=== PATIENT | female | born 1970 | race Caucasian/White ===

== ENCOUNTER 2023-10-03 18:13 | Emergency (ER) | payer SELFPAY ==
[~2023-10-03] VITALS: Ht 154.9 cm; Wt 79.4 kg
[2023-10-03] MEDS ORDERED: PRED20TA PO (20:18)
[2023-10-03] MEDS ORDERED: AZIT250T PO (20:18)
[2023-10-03] MEDS ORDERED: KETOROLAC TROMETHAMINE 30 MG INJ ONE (20:26)
[2023-10-03] MEDS ORDERED: KETO10TA2 PO (20:27)
[2023-10-03 20:29] VITALS: BP 120/69; O2SAT 97
[2023-10-03] MEDS: KETOROLAC TROMETHAMINE 30 MG INJ IM ONE (20:29)
== END 2023-10-03 20:30 | disposition home or self-care (01) ==
LOC: ER 18:18
DX: J02.9 Acute pharyngitis, unspecified (principal); Z20.822 Contact with and (suspected) exposure to COVID-19; Z88.2 Allergy status to sulfonamides
CPT/HCPCS: 99284; 71045; 87426; 87804 ×2; 86403; 87070; 96372; J1885; A4606; A4663

== ENCOUNTER 2024-04-19 10:19 | Emergency (ER) | payer MEDICAID ==
[~2024-04-19] VITALS: Ht 154.9 cm; Wt 83.9 kg
[~2024-04-19 10:19] MED LIST: AZIT250T PO; KETO10TA2 PO; PRED20TA PO
[2024-04-19 10:40] LABS: *BILIRUBIN,URIN 1+ (NEGATIVE); *BLOOD, URINE NEGATIVE (NEGATIVE); *CLARITY,URINE CLEAR (CLEAR); *COLOR,URINE YELLOW (YELLOW); *KETONES,URINE TRACE (NEGATIVE); *PROTEIN,URINE NEGATIVE (NEGATIVE); *UROBILINOGEN,URINE 0.2 E.U./dl (NORMAL); LEUKOCYTE ESTERASE ,URINE NEGATIVE (NEGATIVE); NITRITE, URINE NEGATIVE (NEGATIVE); UGLUCOSE NEGATIVE (NEGATIVE)
[2024-04-19] MEDS ORDERED: KETOROLAC TROMETHAMINE 30 MG INJ ONE (10:47)
[2024-04-19] MEDS: KETOROLAC TROMETHAMINE 30 MG INJ IM ONE (10:53)
[2024-04-19 10:58] LABS: *URINE HCG, QUAL NEGATIVE (NEGATIVE)
[2024-04-19 11:15] LABS: RBC,URINE 0-3 /HPF (0-3)
[2024-04-19] MEDS ORDERED: diphenhydrAMINE 50 MG/1 ML VIAL ONE (11:32)
[2024-04-19] MEDS ORDERED: predniSONE 50 MG TABLET ONE (11:32)
[2024-04-19] MEDS ORDERED: PHENAZOPYRIDINE HCL 100 MG TABLET ONE (11:33)
[2024-04-19] MEDS ORDERED: DOXYCYCLINE HYCLATE 100 MG TABLET ONE (11:34)
[2024-04-19] MEDS: DOXYCYCLINE HYCLATE 100 MG TABLET PO ONE (11:42)
[2024-04-19] MEDS: PHENAZOPYRIDINE HCL 100 MG TABLET PO ONE (11:42)
[2024-04-19] MEDS: diphenhydrAMINE 50 MG/1 ML VIAL IM ONE (11:42)
[2024-04-19] MEDS: predniSONE 50 MG TABLET PO ONE (11:42)
[2024-04-19] MEDS ORDERED: PHEN-705 PO (11:43)
[2024-04-19] MEDS ORDERED: ALBU8.5H8 INH (11:43)
[2024-04-19] MEDS ORDERED: PRED50TA PO (11:43)
[2024-04-19] MEDS ORDERED: DOXY-226 PO (11:43)
[2024-04-19 12:11] VITALS: BP 110/74; TEMP 97.7; O2SAT 100
== END 2024-04-19 12:13 | disposition home or self-care (01) ==
LOC: ER 10:19
DX: J45.909 Unspecified asthma, uncomplicated (principal); R30.0 Dysuria; R10.2 Pelvic and perineal pain; G43.909 Migraine, unspecified, not intractable, without status migrainosus; Z79.1 Long term (current) use of non-steroidal anti-inflammatories (NSAID); Z79.52 Long term (current) use of systemic steroids; Z79.899 Other long term (current) drug therapy; Z88.1 Allergy status to other antibiotic agents
CPT/HCPCS: 99284; 87426; 81001; 84703; 96372 ×2; J7512; J1200; J1885; A4606; A4663

== ENCOUNTER 2024-05-19 21:59 | Emergency (ER) | payer MEDICAID, OTHER ==
[~2024-05-19] VITALS: Ht 165.1 cm; Wt 86.2 kg
[~2024-05-19 21:59] MED LIST changes: +ALBU8.5H8 INH; +DOXY-226 PO; +PHEN-705 PO; +PRED50TA PO
[2024-05-19 22:26] LABS: *BLOOD, URINE NEGATIVE (NEGATIVE); *CLARITY,URINE CLEAR (CLEAR); *COLOR,URINE RED (YELLOW); *KETONES,URINE 1+ (NEGATIVE); LEUKOCYTE ESTERASE ,URINE 3+ (NEGATIVE); NITRITE, URINE POSITIVE (NEGATIVE)
[2024-05-19 22:39] LABS: *PROTEIN,URINE 3+ (NEGATIVE)
[2024-05-19 22:41] LABS: UGLUCOSE 1+ (NEGATIVE)
[2024-05-19 22:42] LABS: *BILIRUBIN,URIN 2+ (NEGATIVE)
[2024-05-19 22:46] LABS: RBC,URINE 0-3 /HPF (0-3)
[2024-05-19 22:47] LABS: BACTERIA,URINE MODERATE /HPF (NONE SEEN); SQUAMOUS EPITHELIAL CELL,UR MODERATE /HPF (NONE SEEN)
[2024-05-19 22:48] LABS: MUCUS,URINE FEW /LPF (0-FEW)
[2024-05-19] MEDS ORDERED: PANT40TA2 PO (22:53)
[2024-05-19] MEDS ORDERED: PHEN-705 PO (22:53)
[2024-05-19] MEDS ORDERED: NITR-84 PO (22:53)
[2024-05-19] MEDS ORDERED: PANTOPRAZOLE SODIUM 40 MG TABLET.DR PO ONE (23:06)
[2024-05-19] MEDS ORDERED: PHENAZOPYRIDINE HCL 100 MG TABLET ONE ×2 (23:07→23:17)
[2024-05-19] MEDS ORDERED: NITROFURANTOIN/NITROFURAN MAC 100 MG CAPSULE PO ONE (23:07)
[2024-05-19] MEDS: NITROFURANTOIN/NITROFURAN MAC 100 MG CAPSULE PO ONE (23:23)
[2024-05-19] MEDS: PANTOPRAZOLE SODIUM 40 MG TABLET.DR PO ONE (23:23)
[2024-05-19] MEDS: PHENAZOPYRIDINE HCL 100 MG TABLET PO ONE (23:23)
[2024-05-20 00:44] VITALS: BP 110/78; TEMP 98.1; O2SAT 98
== END 2024-05-20 00:44 | disposition home or self-care (01) ==
LOC: ER 22:04
DX: N30.90 Cystitis, unspecified without hematuria (principal); K21.9 Gastro-esophageal reflux disease without esophagitis; Z79.899 Other long term (current) drug therapy; Z79.52 Long term (current) use of systemic steroids; Z87.442 Personal history of urinary calculi; Z88.8 Allergy status to other drugs, medicaments and biological substances
CPT/HCPCS: A4606; A4663

== ENCOUNTER 2024-07-09 06:45 | Inpatient (IN) | payer OTHER ==
[~2024-07-09] VITALS: Ht 154.9 cm; Wt 83.1 kg
[~2024-07-09 06:45] MED LIST changes: +NITR-84 PO; +PANT40TA2 PO
[2024-07-09] MEDS ORDERED: PROMETHAZINE HCL INJ 12.5 MG in IV DEXTROSE 5% 50 ML IM STA (07:28)
[2024-07-09] MEDS ORDERED: METRONIDAZOLE 500 MG/NS 100ML 100 ML IV ONE (07:40)
[2024-07-09] MEDS ORDERED: CEFTRIAXONE /D5W 50ML IVPB **ER PYXIS IV ONE (07:40)
[2024-07-09] MEDS ORDERED: KETOROLAC TROMETHAMINE 15 MG INJ ONE (07:40)
[2024-07-09 07:49] LABS: BASOPHILS % (AUTO) 0.3 % (0.0-2.0); EOSINOPHILS % (AUTO) 0.6 % (0.0-7.0); HEMATOCRIT 40.8 % (31.2-41.9); HEMOGLOBIN 13.9 g/dL (10.9-14.3); LYMPHOCYTES # (AUTO) 0.2 K/uL (0.8-4.8); LYMPHOCYTES % (AUTO) 2.5 % (20.5-51.5); MEAN CORPUSCULAR HEMOGLOBIN 29.7 uug (24.7-32.8); MEAN CORPUSCULAR HGB CONC 34 g/dL (32.3-35.6); MEAN CORPUSCULAR VOLUME 86.9 fL (75.5-95.3); MONOCYTES # (AUTO) 0.2 K/uL (0.1-1.30); MONOCYTES % (AUTO) 3.2 % (0.0-11.0); NEUTROPHILS % (AUTO) 93.4 % (38.5-71.5); PLATELET COUNT (AUTO) 231 K/uL (179-408); RED CELL DISTRIBUTION WIDTH 14.1 % (12.3-17.7); WHITE BLOOD COUNT (AUTO) 7.5 K/uL (3.8-11.8)
[2024-07-09 07:54] LABS: DIFFERENTIAL COMMENT 1
[2024-07-09 07:57] LABS: CALCIUM 8.7 mg/dL (8.5-10.1); CARBON DIOXIDE 25 mmol/L (21-32); CHLORIDE 104 mmol/L (98-107); CREATININE 0.9 mg/dL (0.6-1.3); GLUCOSE 122 mg/dL (74-106); POTASSIUM 3.9 mmol/L (3.5-5.1); SODIUM SERUM 140 mmol/L (136-145); UREA NITROGEN, BLOOD 16 mg/dL (7-18)
[2024-07-09] MEDS: IV NORMAL SALINE 1000 ML BAG IV ONE (08:00)
[2024-07-09] MEDS: CEFTRIAXONE 1 G in IV DEXTROSE 5% 50 ML IV ONE (08:00)
[2024-07-09] MEDS: KETOROLAC TROMETHAMINE 15 MG INJ IVP ONE (08:01)
[2024-07-09] MEDS ORDERED: ONDANSETRON 4 MG/2 ML VIAL ONE ×2 (08:02→10:00)
[2024-07-09 08:10] LABS: ALANINE AMINOTRANSFERASE 34 U/L (14-59); ALBUMIN 3.7 g/dL (3.4-5.0); ALKALINE PHOSPHATASE 119 U/L (50-136); ASPARTATE AMINOTRANSFERASE 17 U/L (15-37); BILIRUBIN,DIRECT 0.1 mg/dL (0.0-0.2); BILIRUBIN,TOTAL 0.5 mg/dL (0.2-1.0); LACTIC ACID 2.8 mmol/L (0.4-2.0); NT-PRO BNP 55 pg/mL (0-125); TOTAL PROTEIN, SERUM 7.3 g/dL (6.4-8.2)
[2024-07-09] MEDS: ONDANSETRON 4 MG/2 ML VIAL IV ONE ×2 (08:17→10:06)
[2024-07-09] MEDS: METRONIDAZOLE 500 MG/NS 100ML 100 ML IV ONE (08:28)
[2024-07-09 08:30] LABS: *BILIRUBIN,URIN NEGATIVE (NEGATIVE); *BLOOD, URINE NEGATIVE (NEGATIVE); *CLARITY,URINE CLEAR (CLEAR); *COLOR,URINE YELLOW (YELLOW); *KETONES,URINE NEGATIVE (NEGATIVE); *PROTEIN,URINE NEGATIVE (NEGATIVE); *UROBILINOGEN,URINE 0.2 E.U./dl (NORMAL); LEUKOCYTE ESTERASE ,URINE NEGATIVE (NEGATIVE); NITRITE, URINE NEGATIVE (NEGATIVE); PH,URINE 6.5 (5.0-8.0); UGLUCOSE NEGATIVE (NEGATIVE)
[2024-07-09] MEDS ORDERED: SUMATRIPTAN SUCCINATE 50 MG TABLET ONE (08:36)
[2024-07-09] MEDS: SUMATRIPTAN SUCCINATE 50 MG TABLET PO ONE (08:40)
[2024-07-09] MEDS ORDERED: HYDROMORPHONE 2 MG/1 ML DISP.SYRIN ONE (10:20)
[2024-07-09] MEDS ORDERED: PROMETHAZINE HCL 25 MG SUPP.RECT RC ONE ×2 (10:21→22:13)
[2024-07-09] MEDS: HYDROMORPHONE 1 MG/1 ML DISP.SYRIN IV ONE (10:26)
[2024-07-09] MEDS: PROMETHAZINE HCL 12.5 MG SUPP.RECT RC ONE (10:34)
[2024-07-09] MEDS ORDERED: ZOLP5TAB8 PO (11:08)
[2024-07-09] MEDS ORDERED: PANT40TA49 PO (11:08)
[2024-07-09] MEDS ORDERED: LORA0.5T48 PO (11:08)
[2024-07-09] MEDS ORDERED: REMEDY ESSENTIAL ZINC PASTE 113 GM TP PRN (12:00)
[2024-07-09] MEDS ORDERED: MAGNESIUM HYDROXIDE 30 ML LIQUID UDC PO PRN (12:00)
[2024-07-09 13:00] VITALS: BP 96/40; TEMP 98.4; O2SAT 95
[2024-07-09] MEDS: IV NS 1000 ML 1,000 ML IV PRN (13:08)
[2024-07-09] MEDS: PROMETHAZINE HCL 25 MG TABLET PO PRN (13:10)
[2024-07-09 14:25] VITALS: O2SAT 97
[2024-07-09] MEDS ORDERED: METO-356 PO (15:27)
[2024-07-09] MEDS ORDERED: OMEP20TA20 PO (15:27)
[2024-07-09 15:44] VITALS: BP 100/49; TEMP 98.4; O2SAT 93
[2024-07-09] MEDS: ACETAMINOPHEN 325 MG TABLET PO PRN (18:40)
[2024-07-09 19:30] VITALS: BP 88/36; TEMP 98.4; O2SAT 97
[2024-07-09] MEDS ORDERED: LORAZEPAM 0.5 MG TABLET PO PRN (20:00)
[2024-07-09] MEDS ORDERED: ZOLPIDEM 5 MG TABLET PO PRN (20:00)
[2024-07-09 20:30] VITALS: BP 117/65; TEMP 98.4; O2SAT 96
[2024-07-09 21:04] VITALS: O2SAT 97
[2024-07-09] MEDS: MORPHINE SULFATE 2 MG/1 ML DISP.SYRIN IV PRN (22:10)
[2024-07-09] MEDS: PROMETHAZINE HCL 25 MG SUPP.RECT RC PRN (22:19)
[2024-07-10] VITALS (7 sets, daily range): BP systolic 97–109; BP diastolic 41–85; TEMP 97.5–98.4; O2SAT 91–97
[2024-07-10] MEDS ORDERED: PROMETHAZINE HCL 25 MG SUPP.RECT RC ONE (04:31)
[2024-07-10] MEDS: PANTOPRAZOLE SODIUM 40 MG TABLET.DR PO PRN (06:13)
[2024-07-10 06:29] LABS: BASOPHILS % (AUTO) 0.2 % (0.0-2.0); LYMPHOCYTES # (AUTO) 0.5 K/uL (0.8-4.8); LYMPHOCYTES % (AUTO) 14.3 % (20.5-51.5); MEAN CORPUSCULAR HEMOGLOBIN 30.3 uug (24.7-32.8); MEAN CORPUSCULAR HGB CONC 35 g/dL (32.3-35.6); MEAN CORPUSCULAR VOLUME 87.9 fL (75.5-95.3); MONOCYTES # (AUTO) 0.2 K/uL (0.1-1.30); MONOCYTES % (AUTO) 4.9 % (0.0-11.0); NEUTROPHILS # (AUTO) 2.7 K/uL (1.8-8.9); NEUTROPHILS % (AUTO) 80.6 % (38.5-71.5); PLATELET COUNT (AUTO) 182 K/uL (179-408); RED BLOOD CELL COUNT(AUTO) 3.98 MIL/uL (3.63-4.92); RED CELL DISTRIBUTION WIDTH 14.1 % (12.3-17.7); WHITE BLOOD COUNT (AUTO) 3.3 K/uL (3.8-11.8)
[2024-07-10 06:59] LABS: CALCIUM 7.4 mg/dL (8.5-10.1); CARBON DIOXIDE 24 mmol/L (21-32); CHLORIDE 108 mmol/L (98-107); CREATININE 0.7 mg/dL (0.6-1.3); GLUCOSE 93 mg/dL (74-106); MAGNESIUM 1.5 mg/dL (1.8-2.4); PHOSPHOROUS 2.2 mg/dL (2.5-4.9); SODIUM SERUM 141 mmol/L (136-145); UREA NITROGEN, BLOOD 12 mg/dL (7-18)
[2024-07-10] MEDS: MAGNESIUM SULFATE/D5W 100 ML IV SCH (09:19)
[2024-07-10] MEDS: POTASSIUM CHLORIDE 20 MEQ POWDER PACKET PO ONE (09:20)
[2024-07-10] MEDS: POTASSIUM CHLORIDE 50 ML IV SCH (10:39)
[2024-07-10] MEDS: MAG HYDROX/AL HYDROX/SIMETH 30 ML LIQUID UDC PO ONE (10:49)
[2024-07-10] MEDS: POTASSIUM CHLORIDE 20 MEQ TAB.PRT.SR PO ONE (12:13)
[2024-07-10] MEDS: MORPHINE SULFATE 2 MG/1 ML DISP.SYRIN IV PRN (13:20)
[2024-07-10] MEDS: METRONIDAZOLE 500 MG/NS 100ML 500 MG in PREMIXED 1 EACH IV SCH (14:46)
[2024-07-10] MEDS: NEUTRA PHOS PACKET PO ONE (16:42)
[2024-07-10] MEDS: PROMETHAZINE HCL 25 MG TABLET PO PRN (18:25)
[2024-07-11 05:12] VITALS: O2SAT 96
[2024-07-11] MEDS: diphenhydrAMINE 50 MG/1 ML VIAL IV ONE (05:34)
[2024-07-11 06:13] VITALS: BP 93/51; TEMP 97.3; O2SAT 91; O2SAT 95
[2024-07-11 06:24] LABS: BASOPHILS % (AUTO) 0.3 % (0.0-2.0); EOSINOPHILS # (AUTO) 0.1 K/uL (0.0-0.7); EOSINOPHILS % (AUTO) 1.7 % (0.0-7.0); HEMATOCRIT 33.9 % (31.2-41.9); HEMOGLOBIN 11.3 g/dL (10.9-14.3); LYMPHOCYTES % (AUTO) 27.5 % (20.5-51.5); MEAN CORPUSCULAR HEMOGLOBIN 29.5 uug (24.7-32.8); MEAN CORPUSCULAR HGB CONC 33 g/dL (32.3-35.6); MEAN CORPUSCULAR VOLUME 88.2 fL (75.5-95.3); MONOCYTES # (AUTO) 0.3 K/uL (0.1-1.30); NEUTROPHILS # (AUTO) 2.3 K/uL (1.8-8.9); NEUTROPHILS % (AUTO) 63.5 % (38.5-71.5); PLATELET COUNT (AUTO) 177 K/uL (179-408); RED BLOOD CELL COUNT(AUTO) 3.85 MIL/uL (3.63-4.92); RED CELL DISTRIBUTION WIDTH 14.1 % (12.3-17.7); WHITE BLOOD COUNT (AUTO) 3.7 K/uL (3.8-11.8)
[2024-07-11 06:41] LABS: DIFFERENTIAL COMMENT 1
[2024-07-11 06:42] LABS: CALCIUM 7.4 mg/dL (8.5-10.1); CREATININE 0.7 mg/dL (0.6-1.3); MAGNESIUM 2.2 mg/dL (1.8-2.4); PHOSPHOROUS 1.5 mg/dL (2.5-4.9); POTASSIUM 3.7 mmol/L (3.5-5.1)
[2024-07-11] MEDS ORDERED: IBUPROFEN 200 MG TABLET PO ONE (08:00)
[2024-07-11] MEDS: POTASSIUM PHOSPHATE MM 15 MMOL in IV NORMAL SALINE 250 ML IV ONE (08:05)
[2024-07-11] MEDS: IBUPROFEN 800 MG TABLET PO ONE (08:30)
[2024-07-11 11:31] VITALS: BP 102/41; TEMP 97.9; O2SAT 94
[2024-07-11 16:00] VITALS: BP 97/41; TEMP 97.8; O2SAT 96
[2024-07-11 21:35] VITALS: BP 98/49; TEMP 98.7; O2SAT 93
[2024-07-11 23:56] VITALS: O2SAT 96
[2024-07-12] MEDS ORDERED: PROMETHAZINE HCL 25 MG SUPP.RECT RC ONE (02:22)
[2024-07-12 06:37] VITALS: BP 114/61; TEMP 98.4; O2SAT 96
[2024-07-12 06:46] LABS: BASOPHILS % (AUTO) 0.3 % (0.0-2.0); EOSINOPHILS # (AUTO) 0.1 K/uL (0.0-0.7); EOSINOPHILS % (AUTO) 1.7 % (0.0-7.0); HEMATOCRIT 33.4 % (31.2-41.9); HEMOGLOBIN 11.7 g/dL (10.9-14.3); LYMPHOCYTES # (AUTO) 1.3 K/uL (0.8-4.8); LYMPHOCYTES % (AUTO) 36.1 % (20.5-51.5); MEAN CORPUSCULAR HEMOGLOBIN 30.2 uug (24.7-32.8); MEAN CORPUSCULAR HGB CONC 35 g/dL (32.3-35.6); MEAN CORPUSCULAR VOLUME 86.4 fL (75.5-95.3); MONOCYTES # (AUTO) 0.3 K/uL (0.1-1.30); NEUTROPHILS % (AUTO) 53.9 % (38.5-71.5); PLATELET COUNT (AUTO) 209 K/uL (179-408); RED BLOOD CELL COUNT(AUTO) 3.86 MIL/uL (3.63-4.92); WHITE BLOOD COUNT (AUTO) 3.7 K/uL (3.8-11.8)
[2024-07-12 07:20] LABS: DIFFERENTIAL COMMENT 1
[2024-07-12] MEDS: SUMATRIPTAN SUCCINATE 50 MG TABLET PO ONE (08:46)
[2024-07-12 10:10] VITALS: O2SAT 96
[2024-07-12] MEDS ORDERED: PROM25TA15 PO (11:15)
[2024-07-12] MEDS ORDERED: METR500T PO (11:22)
[2024-07-12 11:32] VITALS: BP 90/62; TEMP 98.1; O2SAT 96
== END 2024-07-12 15:00 | disposition home or self-care (01) | DRG 249 ==
LOC: ER 06:45 → MEDSURG3 11:23 → TELE3 12:41 → MEDSURG3 07-10 10:35
PROVIDERS: ADMIT Nurse Practitioner Family; ATTEND Nurse Practitioner Family
DX: A08.4 Viral intestinal infection, unspecified (principal); E87.20 Acidosis, unspecified; E83.39 Other disorders of phosphorus metabolism; E66.9 Obesity, unspecified; Z68.35 Body mass index [BMI] 35.0-35.9, adult; Z98.84 Bariatric surgery status; R73.9 Hyperglycemia, unspecified; N20.0 Calculus of kidney; E83.42 Hypomagnesemia; E87.6 Hypokalemia; Z79.899 Other long term (current) drug therapy; Z90.710 Acquired absence of both cervix and uterus; Z90.49 Acquired absence of other specified parts of digestive tract; Z87.442 Personal history of urinary calculi; Z88.8 Allergy status to other drugs, medicaments and biological substances; R07.89 Other chest pain; E86.0 Dehydration
CPT/HCPCS: 36415; 71045; 83605; 83690; 83735; 84100; 84484; 85025; 85730; 87040; 93005; A4663; G0378; J0696; J1171; J1200; J1885; J2270; J2405; J2550; J3475; J3480; J3490; J7040; Q0169